=== PATIENT | female | born 1950 | race Caucasian/White ===

== ENCOUNTER → 2016-10-17 | Outpatient (CLI) | payer MEDICARE ==
--- NOTE | 2016-10-17 13:55 | MM ---
Reason for exam: screening (asymptomatic). Last mammogram was performed 2 years and 3 months ago. History: Patient is postmenopausal. Benign US left guided VAD of the left breast, November 29, 2008. Benign excisional biopsy of the right breast. Took hormonal contraceptives for 8 years beginning at age 20. Physical Findings: A clinical breast exam by your physician is recommended on an annual basis and results should be correlated with mammographic findings. MG 3D Screening Mammo W/Cad Bilateral CC and MLO view(s) were taken. Prior study comparison: July 29, 2014, bilateral MG diagnostic mammo w CAD ROBERT. February 17, 2013, bilateral digital screening mammo w/CAD. There are scattered fibroglandular densities. Previous ultrasound biopsy in the left breast. No significant changes when compared with prior studies. ASSESSMENT: Benign, BI-RAD 2 RECOMMENDATION: Routine screening mammogram of both breasts in 1 year.
== END | disposition home or self-care (01) ==
LOC: RADMAMWWP 09:24
PROVIDERS: ATTEND Family Medicine
DX: Z12.31 Encounter for screening mammogram for malignant neoplasm of breast (principal)
CPT/HCPCS: 77063; G0202

== ENCOUNTER → 2021-06-07 | Outpatient (CLI) | payer MEDICARE ==
[2021-06-07 15:00] LABS: HCT 41.8 % (37.2-46.3); HGB 13.3 g/dL (12.0-15.0); MCHC 31.8 g/dL (32.0-37.0); MCV 94.1 fL (80.0-97.0); Mean Platelet Volume 10.3 fL (9.5-12.2); Platelet Count 187 X 10*3/uL (140-440); RBC 4.44 X 10*6/uL (4.10-5.20); RDW 13.1 % (11.5-14.5); WBC 6.06 X 10*3/uL (4.50-10.00)
[2021-06-07 15:24] LABS: ALT 15 U/L (8-44); AST 22 U/L (13-35); African American GFR (CKD) 101.7 (60.0-200.0); BUN/Creat Ratio 10.71 Ratio (12.00-20.00); Blood Urea Nitrogen 7.5 mg/dL (9.0-27.0); Calcium 9.1 mg/dL (8.7-10.3); Carbon Dioxide 23.5 mmol/L (20.0-27.5); Chloride 103 mmol/L (96-109); Chol/HDL Ratio 3.18 Ratio; Glucose 131 mg/dL (70-110); Non-African American GFR(CKD) 87.8 (60.0-200.0); Potassium 4.2 mmol/L (3.5-5.5); Sodium 139 mmol/L (135-145)
== END | disposition home or self-care (01) ==
LOC: LABWHC1 08:29
PROVIDERS: ATTEND Internal Medicine Cardiovascular Disease
DX: E78.2 Mixed hyperlipidemia (principal)
CPT/HCPCS: 36415; 80048; 80061; 84443; 84450; 84460; 85027

== ENCOUNTER → 2021-08-07 | Outpatient (CLI) | payer MEDICARE ==
--- NOTE | 2021-08-09 14:49 | MM ---
Reason for exam: screening (asymptomatic). Last mammogram was performed 4 years and 10 months ago. History: Patient is postmenopausal. Benign US left guided VAD of the left breast, November 29, 2008. Benign excisional biopsy of the right breast. Took hormonal contraceptives for 8 years beginning at age 20. Physical Findings: A clinical breast exam by your physician is recommended on an annual basis and results should be correlated with mammographic findings. MG 3D Screening Mammo W/Cad Bilateral CC and MLO view(s) were taken. Prior study comparison: July 20, 2019, mammogram, performed at [facility]. March 16, 2018, mammogram, performed at [facility]. October 17, 2016, bilateral MG 3d screening mammo w/cad. July 29, 2014, bilateral MG diagnostic mammo w CAD ROBERT. The breast tissue is heterogeneously dense. This may lower the sensitivity of mammography. Previous mammotome biopsy in the left breast. No significant changes when compared with prior studies. ASSESSMENT: Benign, BI-RAD 2 RECOMMENDATION: Routine screening mammogram of both breasts in 1 year.
== END | disposition home or self-care (01) ==
LOC: RADMAMWWP 07:56
PROVIDERS: ATTEND Family Medicine
DX: Z12.31 Encounter for screening mammogram for malignant neoplasm of breast (principal); Z78.0 Asymptomatic menopausal state
CPT/HCPCS: 77063; 77067

== ENCOUNTER 2022-02-13 09:48 | Day surgery (SDC) | payer MEDICARE ==
[~2022-02-13 09:48] MED LIST: DEXAMETHASONE SOD PHOSPHATE 4 MG/ML 1 ML VIAL IV ONE; DEXAMETHASONE SOD PHOSPHATE 4 MG/ML 1 ML VIAL IV PRN; FAMOTIDINE 20 MG/2 ML VIAL IV PRN; HYDROmorphone 0.5 MG/0.5 ML SYRINGE IVP PRN; LACTATED RINGERS 1,000 ML IV SCH; LIDOCAINE 1% (10MG/ML) FOR IV START INTRADERMA PRN; MIDAZOLAM 2 MG/2 ML VIAL IV PRN; ONDANSETRON 4 MG/2 ML VIAL IVP ONE; ONDANSETRON 4 MG/2 ML VIAL IVP PRN
[2022-02-13 11:53] LABS: Glucose,Whole Blood 145 mg/dL (70-110)
[2022-02-13] MEDS: hydrALAZINE HCL 20 MG/ML 1 ML VIAL IV ONE ×2 (12:02→12:35)
[2022-02-13] MEDS ORDERED: LIDOCAINE 2% INJ 20 MG/ML (2 ML VIAL) ONE (13:20)
[2022-02-13] MEDS ORDERED: SUCCINYLCHOLINE CHLORIDE 200 MG/10 ML VIAL IV ONE (13:20)
[2022-02-13] MEDS ORDERED: PROPOFOL 10 MG/ML 20 ML VIAL IV ONE (13:20)
[2022-02-13] MEDS ORDERED: MIDAZOLAM 2 MG/2 ML VIAL ONE (13:20)
[2022-02-13] MEDS ORDERED: fentaNYL (PF) 50 MCG/ML 2 ML AMP ONE (13:20)
--- NOTE | 2022-02-13 13:54 | P.OP ---
Date of Procedure: 02/13/22 Preoperative Diagnosis: Right vocal cord lesion Postoperative Diagnosis: Same, small approximately 2 mm mid right true vocal cord nodule smooth Procedure(s) Performed: Microlaryngoscopy with excision right vocal cord lesion Anesthesia: ARNOLDO Surgeon: Ciaran Joyner Estimated Blood Loss (ml): 0 Pathology: other (Right vocal cord lesion) Condition: stable Disposition: PACU Indications for Procedure: This 71-year-old white female whose had difficulties with chronic hoarseness and noted to have vocal cord lesion on flexible laryngoscopy and video stroboscopy. Her voice has improved since her last visit actually. Operative Findings: Small approximate 2 mm smooth nodular pink lesion right mid true vocal cord Description of Procedure: The patient was brought in the operative suite and placed in supine position. Patient underwent induction of general anesthesia with oral endotracheal intubation without difficulty. Patient was prepped and draped in usual aseptic fashion to the guard was placed and direct laryngoscopy was performed with systematic evaluation of the base of tongue vallecula both piriform sinuses post cricoid area and endolarynx. With the larynx in good visualization the microscope was brought into position to visualize the vocal cords. There was a small lesion noted on the right true vocal cord as noted above and this was excised with microdissection technique using microcup forceps and microscissors technique. Hemostasis was gained spontaneously. No other lesions were noted. The lesion was excised superficial to the lamina propria. The endoscope and tooth guard were removed. The patient was allowed to emerge from general anesthesia having tolerated procedure well was extubated in the operating suite and transferred to the postop recovery area in satisfactory condition
[2022-02-13 14:21] VITALS: TEMP 97.2
[2022-02-13 14:39] VITALS: RESP 16
[2022-02-13 15:05] VITALS: BP 148/66; PULSE 88
== END 2022-02-13 15:18 | disposition home or self-care (01) ==
LOC: OR 09:48
PROVIDERS: ATTEND Otolaryngology
DX: J38.1 Polyp of vocal cord and larynx (principal); E11.9 Type 2 diabetes mellitus without complications; I10 Essential (primary) hypertension; Z90.710 Acquired absence of both cervix and uterus; Z83.3 Family history of diabetes mellitus; F32.A Depression, unspecified; F41.9 Anxiety disorder, unspecified; Z98.42 Cataract extraction status, left eye; Z98.41 Cataract extraction status, right eye; Z98.890 Other specified postprocedural states; Z79.890 Hormone replacement therapy; Z79.52 Long term (current) use of systemic steroids; Z79.899 Other long term (current) drug therapy
CPT/HCPCS: 88305; 31541; J2250; J0330; J0360; J1100; J2405; J3010; J2704; J2001

== ENCOUNTER → 2022-02-20 | Outpatient (CLI) | payer MEDICARE ==
--- NOTE | 2022-02-20 14:14 | P.SLEEP ---
History of Present Illness DATE: 02/20/2022 CONSULTATION/NEW PATIENT EVALUATION HISTORY OF PRESENT ILLNESS/SLEEP-WAKE EVALUATION: 71 year old lady had been evaluated in the sleep center for possible obstructive sleep apnea hypopnea syndrome. Patient had history of obstructive sleep apnea hypopnea syndrome diagnosed about 15 years ago. She was started on treatment with CPAP at that time, but then switched to oral appliances stop CPAP therapy. Later because of some teeth problems she was not able to use oral appliances. At the present time she is ready to use CPAP treatment. SLEEP SCHEDULE: Usually sleep schedule from 7 to 9 PM until 4-7 AM. FALLING ASLEEP: The patient has problems with falling asleep, highest TV set and bedroom, taking citalopram at bedtime. DURING SLEEP: Patient snores loudly, wakes up from sleep 4 times with nocturia. No history of hypnogogical hallucinations, sleep paralysis, or cataplexy. DURING THE DAY/WAKE STATE: In the morning patient wake up tired, has episodes of anxiety. [place] sleepiness scale is for. Usually patient doesn't take naps. PAST MEDICAL HISTORY: Hypertension, hyperlipidemia, diabetes mellitus, hypothyroidism, history of asthma. PAST SURGICAL HISTORY: Right knee replacement, total hysterectomy. MEDICATIONS: Citalopram 40 mg at bedtime, rosuvastatin, metoclopramide 10 mg up to 4 times a day,ozempic once a week, quetiapine, medication for blood pressure patient doesn't remember the name. SOCIAL HISTORY: Negative for smoking, alcohol consumption occasional. FAMILY HISTORY: Hypertension, heart problems, diabetes. REVIEW OF SYSTEMS: Loud snoring, multiple awakenings from sleep. No fevers. No double vision. No recent chest pain. No shortness of breath. No abdominal pain. No bleeding episodes. No blood in urine. No seizure episodes. PHYSICAL EXAMINATION: GENERAL: A pleasant patient without any distress. VITAL SIGNS: BP 200/98 , HR 79 , RR 16 , weight 227.8 pounds, height 5 foot 7 inches, body mass index 35.7, temperature 97.0, oxygen saturation at room air 95% . HEENT: PERRLA, EOMI. Evaluation of oropharynx showed tongue protrudes midline, low position of soft palate Mallampati 4. NECK: Supple. No JVD. Thyroid is not palpable. 16-3/4 inches in circumference. LUNGS: Clear to percussion and to auscultation. Good air exchange. No wheezing or rhonchi. HEART: S1, S2 regular. No murmurs, gallops or rubs. ABDOMEN: Soft and nontender. Bowel sounds are present. No organomegaly appreciated. EXTREMITIES: No clubbing or cyanosis. FLOUR BROKER: Awake, alert, and oriented x3. Cranial nerves 2 to 7 intact. There is no fasciculation or atrophy noted. No focal deficits observed. ASSESSMENT: 1. Loud snoring, multiple awakenings from sleep, extremely low position of soft palate Mallampati 4, wide neck for female 16-3/4 inches in circumference, history of obstructive sleep apnea hypopnea syndrome in the past. Obstructive sleep apnea-hypopnea syndrome. 2. Obesity body mass index 35.7. 3 hypertension. 4. Hyperlipidemia. 5 hypothyroidism. 6. Diabetes mellitus. 7. History of asthma. 8. Status post right knee replacement. 9. Status post total hysterectomy. PLAN: 1. Polysomnography for evaluation of patient's breathing during sleep. 2. CPAP/BiPAP titration if sleep study confirms obstructive sleep apnea- hypopnea syndrome. 3. Preferable position during sleep on the side. 4. No driving if patient feels any sleepiness. Patient is aware of civil and criminal liability for unsafe driving. 5. Sleep hygiene with regular sleep time for at least 7.5-8 hours. 6. Watching and losing weight. Thank you very much for referring this patient for consultation. Sincerely, Yuri Jacobsen MD, PhD, FAASM. Diplomat of [place] [employer], Sleep Medicine Board by [place] [employer] [place] [employer] [facility] [employer] Past Medical History Past Medical History: Asthma, Diabetes Mellitus, Hyperlipidemia, Hypertension Additional Past Medical History / Comment(s): cataracts, History of Any Multi-Drug Resistant Organisms: None Reported Past Surgical History: Breast Surgery, Heart Catheterization, Hysterectomy, Joint Replacement Additional Past Surgical History / Comment(s): rt knee,bunion and hammer toe surgey sean feet, cataract sean removed Past Anesthesia/Blood Transfusion Reactions: No Reported Reaction, Postoperative Nausea & Vomiting (PONV) Additional Past Anesthesia/Blood Transfusion Reaction / Comment(s): Pt has never recieved blood. Smoking Status: Never smoker - Past Family History Father Family Medical History: Myocardial Infarction (VT) Additional Family Medical History / Comment(s): Father at age 32yrs of massive VT. Mother Family Medical History: Coronary Artery Disease (CAD) Brother(s) Family Medical History: Coronary Artery Disease (CAD), Diabetes Mellitus Additional Family Medical History / Comment(s): Brother at age 46yrs from DM and CAD Medications and Allergies Home Medications Medication Instructions Recorded Confirmed Type Rosuvastatin Calcium [Crestor] 10 mg PO DAILY 09/25/13 02/11/22 History QUEtiapine FUMARATE [SEROquel XR] 50 mg PO HS 09/16/14 02/11/22 History Citalopram Hydrobromide [CeleXA] 40 mg PO DAILY 02/11/22 02/11/22 History LORazepam [Ativan] 0.5 mg PO TID PRN 02/11/22 02/11/22 History Levothyroxine Sodium [Synthroid] 75 mcg PO DAILY 02/11/22 02/11/22 History Losartan Potassium 50 mg PO DAILY 02/11/22 02/11/22 History Metoclopramide [Reglan] 1 tab PO QID 02/11/22 02/11/22 History Semaglutide [Ozempic] 1 mg INJ WEEKLY 02/11/22 02/11/22 History Allergies Allergy/AdvReac Type Severity Reaction Status Date / Time No Known Allergies Allergy Verified 02/13/22 11:45 Sleep Note - Sleep Note Sleep Note: Temperature: Pulse Rate: Respiratory Rate: Blood Pressure: SpO2: Height: Weight: BMI: Neck Circumference:
== END ==
LOC: SLEEP 13:14
PROVIDERS: ATTEND Internal Medicine
DX: G47.33 Obstructive sleep apnea (adult) (pediatric) (principal); F41.9 Anxiety disorder, unspecified; I10 Essential (primary) hypertension; E78.5 Hyperlipidemia, unspecified; E11.9 Type 2 diabetes mellitus without complications; E03.9 Hypothyroidism, unspecified; E66.9 Obesity, unspecified; J45.909 Unspecified asthma, uncomplicated; Z79.890 Hormone replacement therapy; Z99.89 Dependence on other enabling machines and devices; Z68.35 Body mass index [BMI] 35.0-35.9, adult; Z90.710 Acquired absence of both cervix and uterus; Z96.651 Presence of right artificial knee joint; Z79.84 Long term (current) use of oral hypoglycemic drugs
CPT/HCPCS: 99211